=== PATIENT | male | born 1995 | race Caucasian/White ===

== ENCOUNTER 2019-03-03 15:05 | Day surgery (SDC) | payer BC ==
[~2019-03-03] VITALS: Ht 175.3 cm; Wt 89.5 kg
[2019-03-03 15:37] VITALS: BP 149/77; PULSE 79; TEMP 97.9
[2019-03-03] MEDS ORDERED: MULTI VITAMINS1 TAB PO (15:44)
[2019-03-03] MEDS ORDERED: ADVIL200 MG PO (15:44)
--- NOTE | 2019-03-03 15:45 | NUR ---
TO RM AT 1513- CALL LIGHT IN REACH GIRLFRIEND AT BEDSIDE.
--- NOTE | 2019-03-03 15:58 | NUR ---
PATIENT RECEIVED LIST OF LOCAL MENTAL HEALTH RESOURCES.
--- NOTE | 2019-03-03 16:00 | NUR ---
CALL LIGHT IN REACH FAMILY AT BEDSIDE.
[2019-03-03 19:16] VITALS: BP 112/82; PULSE 72; TEMP 97.5
--- NOTE | 2019-03-03 19:30 | NUR ---
Pt. to the floor from PACU. Pt. has already voided with out complications. Pt. vitals stable. Will monitor.
[2019-03-03 19:31] VITALS: BP 121/78; PULSE 99
[2019-03-03 19:46] VITALS: BP 139/83; PULSE 84
[2019-03-03 20:16] VITALS: BP 132/83; PULSE 86
--- NOTE | 2019-03-03 20:45 | NUR ---
Pt. has meet discharge criteria. Paperwork complete. Reviewed medications, discharge instructions, follow up appointment, and pt. health summary. Pt. questions answered. INT discontinued from lt. hand. Pt. to call when ready to be walked out.
[2019-03-03 20:46] VITALS: BP 139/80; PULSE 84
--- NOTE | 2019-03-03 20:55 | NUR ---
Pt. escorted out by [facility].
== END 2019-03-03 20:50 | disposition home or self-care (01) ==
LOC: SDCO 15:05 → JCC 19:57 → SDCO 20:50
DX: N13.2 Hydronephrosis with renal and ureteral calculous obstruction (principal); F17.210 Nicotine dependence, cigarettes, uncomplicated; F41.9 Anxiety disorder, unspecified; F32.9 Major depressive disorder, single episode, unspecified
CPT/HCPCS: OP; C1769; C2617; J0690; J2405; J2704; J3010; J7120; Q9967